=== PATIENT | male | born 1985 | race Caucasian/White ===

== ENCOUNTER 2021-01-20 11:49 | Emergency (ER) | payer SELFPAY ==
[2021-01-20 11:58] VITALS: BP 125/78; PULSE 77; RESP 17; TEMP 36.7; O2SAT 100
--- NOTE | 2021-01-20 12:34 | ED.GENADUL_ITS ---
Discharge Plan Disposition Patient Disposition: HOME Condition: Stable Discharge Details Clinical Impression: Laceration of head, Acute thoracic myofascial strain Primary Care Provider: Unknown,Unknown ED Provider: Bettie Shay Home Meds and New Rx's Prescriptions: New cyclobenzaprine 10 mg tablet 10 mg PO TID PRNQty: 10 RF: 0 Discharge Instructions Instructions: Laceration (ED) Additional Instructions: Take ibuprofen 600 mg every 8 hours with food Take Flexeril as needed for musculoskeletal pain Do not take Flexeril and drive for 8 hours Please return earlier with new or worsening complaints including strength or sensation change, uncontrolled vomiting, worsening headache Your nam will need to be removed in 7 days Keep the staple site clean, keep it dry for the next 24 hours, and do not scrub the area Discharge Data Discharge Date/Time-TO BE ENTERED AT DEPARTURE: 01/20/21 12:45 Medical Decision Making Patient declines tetanus vaccination, I discussed risk of without appropriate prophylaxis and patient complexity of risk He is alert, oriented, of decisional capacity Patient is otherwise well in appearance, he has no midline tenderness, lungs are clear to auscultation, paraspinal tenderness, no indication for imaging at this time I reiterated the importance of tetanus vaccination I also discussed return precautions in terms of head injury Medication for head CT No vomiting, nonfocal neurological exam Low suspicion for subdural or subarachnoid hemorrhage given stability of patient and mechanism of injury No evidence cervical or thoracic fracture Did also consider pneumothorax however mechanism and Nexus diagnosis unlikely, patient is not tachypneic or hypoxic HPI General Mode of arrival: ambulatory . Date/Time Provider Initiated Documentation: 01/20/21 11:58 . Limitations to Documentation: no limitations . Information obtained by: patient . HPI Narrative: This 35-year-old gentleman who is otherwise healthy presents with head injury just prior to arrival. He states he was driving his tractor into the trailer and was not watching what he was doing. He has had on the top of the trailer. He denies loss of consciousness. He reports some pain on either side of the scapula and to the very top of his head that is not worsening. He denies falling off a tractor, loss of conscious, or shortness of breath. He denies any anterior chest pain. He is unsure regarding his tetanus vaccine reportedly. He denies any vision changes. He denies any history of coagulopathy denies any strength or sensation change. Related Data Home Medications Medication Instructions Recorded Confirmed cyclobenzaprine 10 mg PO TID PRN #10 tab 01/20/21 Previous Rx's Medication Instructions Recorded cyclobenzaprine 10 mg PO TID PRN #10 tab 01/20/21 Allergies Allergy/AdvReac Type Severity Reaction Status Date / Time No Known Allergies Allergy Unverified 01/20/21 12:02 General Stated Complaint: Laceration MILLI: 4 Review of Systems All systems reviewed & are unremarkable except as noted in HPI and below PFSH Social History Smoking/Tobacco Use Status: Never Smoking risk assessment performed?: Yes Alcohol Intake: current Alcohol Intake frequency: holidays/special occasions only Drug use: Rarely Substance use type: marijuana Do you feel safe at home: Yes Do you feel safe in your relationship?: Yes Exam Const General: cooperative and comfortable HENMT Other: 2 inch laceration noted to parietal region of head, no hemotympanum, uvula midline, no crepitus Eyes Pupils: PERRL Neck Other: No midline tenderness Chest Other: No anterior chest wall pain Resp Effort & Inspection: normal respiratory effort Auscultation: clear to auscultation bilaterally Cardio Rate: regular rate Rhythm: regular rhythm Other: Distal pulses intact Back/Spine/Pelvis Other: No midline thoracic or lumbar tenderness Neuro General: patient alert, patient oriented x3 and CN's II-XI intact bilaterally Cranial Nerves: PERRL Other: GCS 15 Extrem Other: Strength and sensation intact to bilateral upper and lower extremities Course Vital Signs Vital signs: Vital Signs Temperature 36.7 C 01/20/21 11:58 Pulse 77 01/20/21 11:58 Respiratory Rate 17 01/20/21 11:58 Blood Pressure 125/78 01/20/21 11:58 Pulse Oximetry 100 01/20/21 11:58 Temperature 36.7 C 01/20/21 11:58 Temperature Source Temporal Artery Scan 01/20/21 11:58 Pulse 77 01/20/21 11:58 Respiratory Rate 17 01/20/21 11:58 Respiratory Effort Non-Labored 01/20/21 12:03 Blood Pressure 125/78 01/20/21 11:58 Blood Pressure Position Sitting 01/20/21 11:58 Pulse Oximetry 100 01/20/21 11:58 Oxygen Delivery Method Room Air 01/20/21 11:58 Oxygen Flow Rate 0 01/20/21 11:58 Pain Level 7 01/20/21 11:58 Procedures Laceration Laceration 1: Site: scalp Size (cm): 5 Depth: simple, single layer Skin layer closed with: other (nam) Number of sutures: 4 Technique: simple, interrupted
== END 2021-01-20 12:45 | disposition home or self-care (01) ==
PROVIDERS: Emergency Provider Physician Assistant
DX: S01.01XA Laceration without foreign body of scalp, initial encounter (principal); S29.012A Strain of muscle and tendon of back wall of thorax, initial encounter; V84.5XXA Driver of special agricultural vehicle injured in nontraffic accident, initial encounter
CPT/HCPCS: 12002; 99281